=== PATIENT | male | born 1955 | race Caucasian/White ===

== ENCOUNTER 2018-02-06 12:53 | Day surgery (SDC) | payer OTHER ==
[2018-02-06] MEDS ORDERED: FENTAnyl 50 MCG/ML VIAL (13:56)
[2018-02-06] MEDS ORDERED: CEFAZOLIN 1 GM INJ (13:57)
[2018-02-06] MEDS ORDERED: MIDAZOLAM 1 MG/ML 2 ML INJ (13:57)
[2018-02-06] MEDS ORDERED: METOCLOPRAMIDE 10 MG INJ (13:58)
[2018-02-06] MEDS ORDERED: CLINDAMYCIN 900 MG/D5W (PMX) 50 ML IVPB (14:00)
[2018-02-06] MEDS: BUPIVACAINE 0.5% (SDV) 30 ML INJ (16:12)
[2018-02-06] MEDS: LIDOCAINE 1% (MPF) 30 ML INJ (16:12)
[2018-02-06] MEDS ORDERED: PROPOFOL 20 ML (16:13)
[2018-02-06] MEDS ORDERED: ONDANSETRON 4 MG INJ IV (17:00)
[2018-02-06] MEDS ORDERED: HYDROmorphONE (0.2 MG/ML) 10ML SYG IV (17:00)
[2018-02-06] MEDS ORDERED: FENTAnyl 50 MCG/ML VIAL IV (17:00)
== END 2018-02-06 18:30 | disposition home or self-care (01) ==
LOC: SDS 12:53
DX: M67.441 Ganglion, right hand (principal); M19.041 Primary osteoarthritis, right hand
CPT/HCPCS: 26160; 71045; 88307; 88311